=== PATIENT | female | born 1930 | race Caucasian/White ===

== ENCOUNTER 2017-02-10 08:53 | Day surgery (SDC) | payer OTHER ==
[2017-02-05 09:36] LABS: HEMATOCRIT 33.9 % (36.0-48.0); HEMOGLOBIN 11.4 g/dL (12.0-16.0)
[2017-02-05 09:56] LABS: BUN (BLOOD UREA NITROGEN) 31 MG/DL (6-23); CALCIUM, SERUM 9.7 MG/DL (8.5-10.4); CHLORIDE, SERUM 106 MMOL/L (96-112); CO2 (CARBON DIOXIDE) 29 MMOL/L (24-34); CREATININE 2.15 MG/DL (0.55-1.02); GFR AFRICAN AMERICAN 23 ML/MIN (>=60); GFR NON AFRICAN AMERICAN 20 ML/MIN (>=60); POTASSIUM, SERUM 3.8 MMOL/L (3.5-5.3); SODIUM, SERUM 143 MMOL/L (135-148)
[2017-02-05 09:57] LABS: GLUCOSE, SERUM 100 MG/DL (60-99)
--- NOTE | ~2017-02-10 | OP ---
Record Of Operation [facility] [address] [place]. 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 OPERATIVE PROCEDURE PERFORMED: 1. Wide local excision of a 1.6 cm upper lip squamous cell carcinoma with advancement flap closure. 2. Excision of anterior chest wall lesion approximately 2.5 x 2 cm in size. INDICATIONS AND SIGNIFICANT HISTORY: The patient is an 86-year-old female with significant history of a persistent lesion of the upper lip. This was biopsied and revealed squamous cell carcinoma. The patient was felt to benefit from excision of her squamous cell carcinoma given the sensitive area and a need for margins given the pathology of squamous cell carcinoma. OPERATIVE PROCEDURE AND FINDINGS: After informed consent was obtained, the patient was brought to the operating room and placed on the operating table in the supine position. At which point, general endotracheal anesthesia was induced by Anesthesia Service. The lip and anterior chest were prepped and draped in standard fashion. These were also injected with approximately 4 mL of 2% lidocaine 1:100,000 epinephrine. The lip lesion was excised 1st and tagged at the 12 o'clock position with an Ethilon suture. This was sent to pathology while the anterior chest wall lesion was excised. The anterior chest wall lesion was excised and electrocautery was used to provide hemostasis. Attention was then returned toward the lip defect. Pathology returned closer positive deep margin in a fairly aggressive-appearing tumor with perineural invasion. Deep margin was reexcised followed by reexcision of the margin from 12 o'clock to approximately 5 o'clock position within the lateral portion of the lesion. This was sent for permanent sectioning. At this point, attention was then turned toward closure of the wound. This resulting defect was approximately 0.5 to 2 cm in size. Crossed the vermilion border in upper lip. A hatchet flap closure was selected, which was a local advancement flap. The flap was elevated using combination of sharp and blunt dissection. The long limb was carried into the crease at the region of the cheek. The flap was then elevated and closed with 5-0 Vicryl suture and 5-0 plain gut suture. At this point, the patient was then turned back toward anesthesia, aroused from anesthesia, and taken to the postanesthesia care unit in satisfactory condition. COMPLICATIONS: None. ESTIMATED BLOOD LOSS: Less than 5 mL. IV FLUIDS: Per Anesthesia. Record Of Operation [address] [place]. [address] NAME: SYLVESTER JEFF : [birth year] STATUS : [facility] PAT#: [id number] AGE: 86 ADM/REG DATE : 02/10/17 MR#: [id number] REPORT SERV DATE: 02/11/17 DICTATED BY: RAVI PRO DATE: 02/11/17 REPORT STATUS : Draft TRANSCRIBED BY: GEN DATE: 02/11/17 CEM/GEN Ravi Pro M.D. / [id number] CC: Lane Chase M.D.
[~2017-02-10 08:53] MED LIST: B12100T PO; BENTYL10 PO; GLUCCHONDR PO; L20 PO; LEVOTHYROXIN88 MCG PO; LIPITOR20 PO; METPAKSF PO; MIRALAX POWDER1 PKT PO; NORV5 PO; OSTEO BI-FLEX1 EACH PO; PEP20 PO; TRADJENTA5 MG PO; XARELTO15 MG PO
== END 2017-02-10 14:43 | disposition home or self-care (01) ==
LOC: SDC 08:53
PROVIDERS: Otolaryngology
PROC: 0WB80ZZ Excision of Chest Wall, Open Approach (ICD-10-PCS; 2017-02-10)
PROC: 0CX Mouth and Throat, Transfer (ICD-10-PCS; principal; 2017-02-10 10:15)
DX: C44.02 Squamous cell carcinoma of skin of lip (principal); D04.5 Carcinoma in situ of skin of trunk; I12.9 Hypertensive chronic kidney disease with stage 1 through stage 4 chronic kidney disease, or unspecified chronic kidney disease; E11.22 Type 2 diabetes mellitus with diabetic chronic kidney disease; N18.9 Chronic kidney disease, unspecified; E03.9 Hypothyroidism, unspecified; E78.5 Hyperlipidemia, unspecified; K21.9 Gastro-esophageal reflux disease without esophagitis; I48.0 Paroxysmal atrial fibrillation; E78.00 Pure hypercholesterolemia, unspecified; Z98.890 Other specified postprocedural states; Z79.899 Other long term (current) drug therapy; Z83.3 Family history of diabetes mellitus; Z98.41 Cataract extraction status, right eye; Z98.42 Cataract extraction status, left eye
CPT/HCPCS: 80048; 82962; 85014; 85018; 88305; 88331; 93005; J0690; J2405; J2710; J3010